=== PATIENT | male | born 1940 | race Caucasian/White ===

== ENCOUNTER 2019-02-01 05:25 | Inpatient (IN) | payer BC ==
[~2019-02-01] VITALS: Ht 182.9 cm; Wt 111.1 kg
[2019-02-01] MEDS ORDERED: TRAM-529 PO (05:45)
[2019-02-01] MEDS ORDERED: TAMS-11 PO (05:45)
[2019-02-01] MEDS ORDERED: FINA5TAB11 PO (05:45)
[2019-02-01] MEDS ORDERED: FENO145T36 PO (05:45)
[2019-02-01] MEDS ORDERED: METO25TA6 PO (05:45)
[2019-02-01] MEDS ORDERED: GLYB2.5T4 PO (05:45)
[2019-02-01] MEDS ORDERED: CHOL100L PO (05:45)
[2019-02-01] MEDS ORDERED: FOLI-43 PO (05:45)
[2019-02-01] MEDS ORDERED: DULA1.5P SQ (05:45)
[2019-02-01] MEDS ORDERED: FERR325T6 PO (05:45)
[2019-02-01] MEDS ORDERED: PRAV40TA58 PO (05:45)
[2019-02-01] MEDS ORDERED: GABA-531 PO (05:45)
[2019-02-01] MEDS ORDERED: CHOL400T15 PO (05:45)
[2019-02-01] MEDS ORDERED: SODIUM CHLORIDE 0.9% 1,000 ML IV SCH (06:15)
[2019-02-01] MEDS ORDERED: BUPIVACAINE HCL 0.5% (5MG/ML) 50ML ONE (06:33)
[2019-02-01] MEDS ORDERED: SKIN ADHESIVE 0.7 GM EA TOP ONE (06:33)
[2019-02-01] MEDS ORDERED: PROPOFOL 200MG/20ML VIAL IV ONE (06:51)
[2019-02-01] MEDS ORDERED: MIDAZOLAM HCL 2 MG/2 ML VIAL ONE (06:51)
[2019-02-01] MEDS ORDERED: GLYCOPYRROLATE 0.2 MG/ML 2ML VIAL ONE ×2 (06:51→08:15)
[2019-02-01] MEDS ORDERED: FENTANYL CITRATE/PF 50MCG/ML 2ML VIAL ONE (06:51)
[2019-02-01] MEDS ORDERED: ROCURONIUM BROMIDE 10MG/ML VIAL 5ML IV ONE (06:51)
[2019-02-01] MEDS ORDERED: NEOSTIGMINE METHYLSULFATE 1MG/ML 10 ML VIAL ONE (06:51)
[2019-02-01] MEDS ORDERED: LEVOFLOXACIN 500MG PREMIX 100 ML IV SCH (07:00)
[2019-02-01] MEDS ORDERED: ACETAMINOPHEN 650MG SUPP PR PRN (07:00)
[2019-02-01] MEDS ORDERED: ONDANSETRON HCL 4MG/2ML INJ IV PRN ×2 (07:00→07:45)
[2019-02-01] MEDS ORDERED: DEXAMETHASONE 4MG/ML 1ML VIAL ONE (07:05)
[2019-02-01] MEDS ORDERED: HYDROMORPHONE HCL/PF 2MG/ML (OR) ONE (07:20)
[2019-02-01] MEDS ORDERED: GLIM4TAB2 PO (07:44)
[2019-02-01] MEDS ORDERED: HYDR-4001 PO (07:44)
[2019-02-01] MEDS ORDERED: LABETALOL 5MG/ML SYR 20 MG/4 ML SYRINGE IV PRN (07:45)
[2019-02-01] MEDS ORDERED: MEPERIDINE HCL/PF 25MG/ML CPJ IV PRN (07:45)
[2019-02-01] MEDS ORDERED: HYDROMORPHONE HCL/PF 2MG/ML CPJ IV PRN (07:45)
[2019-02-01] MEDS ORDERED: BUPIVACAINE HCL 0.5% 125 ML in ON-Q PM012 DRUG DELIV DEVICE 1 EA IR SCH (08:00)
[2019-02-01] MEDS ORDERED: BUPIVACAINE HCL 0.5% 125 ML in ON-Q PUMP (PM012=P100X2) IR SCH (08:15)
[2019-02-01 11:00] VITALS: BP 146/70
[2019-02-01] MEDS ORDERED: OFLO5DRO3 RIGHTEYE (11:11)
[2019-02-01 12:00] VITALS: BP 146/70
[2019-02-01] MEDS: MORPHINE SULFATE 4 MG/ML CPJ (NOT FOR IM USE) IV PRN ×3 (15:13→22:25)
[2019-02-01 16:00] VITALS: BP 179/91
[2019-02-01] MEDS: DEXT 5%/0.45% NACL KCL 20MEQ/L 1,000 ML IV SCH (17:05)
[2019-02-01] MEDS: METRONIDAZOLE 500 MG PREMIX 100 ML IV SCH (18:54)
[2019-02-01 20:00] VITALS: BP 174/87
[2019-02-01] MEDS ORDERED: DEXTROSE 50% WATER 50ML SYRINGE IV PRN (20:15)
[2019-02-01] MEDS: BLOOD SUGAR DIAGNOSTIC STRIP TEST SCH (21:06)
[2019-02-01] MEDS: INSULIN LISPRO 100 UNITS/ML SUBCUT SCH (21:39)
[2019-02-02] VITALS: BP 152/77
[2019-02-02] MEDS: METRONIDAZOLE 500 MG PREMIX 100 ML IV SCH (01:35)
[2019-02-02] MEDS: DEXT 5%/0.45% NACL KCL 20MEQ/L 1,000 ML IV SCH ×3 (01:36→19:54)
[2019-02-02] MEDS: MORPHINE SULFATE 4 MG/ML CPJ (NOT FOR IM USE) IV PRN ×4 (03:24→20:12)
[2019-02-02 04:00] VITALS: BP 166/75
[2019-02-02] MEDS: BLOOD SUGAR DIAGNOSTIC STRIP TEST SCH ×4 (06:36→20:34)
[2019-02-02 08:00] VITALS: BP 144/78
[2019-02-02] MEDS: INSULIN LISPRO 100 UNITS/ML SUBCUT SCH ×4 (08:47→21:40)
[2019-02-02] MEDS: FAMOTIDINE 20MG/2ML VIAL IV SCH ×2 (09:07→09:09)
[2019-02-02 12:00] VITALS: BP_SYST 145; BP_SYST 193; BP_DIAS 76; BP_DIAS 84
[2019-02-02 16:00] VITALS: BP 136/67
[2019-02-02 20:00] VITALS: BP 165/81
[2019-02-03] VITALS (7 sets, daily range): BP systolic 137–176; BP diastolic 74–96
[2019-02-03] MEDS: MORPHINE SULFATE 4 MG/ML CPJ (NOT FOR IM USE) IV PRN ×3 (01:00→09:23)
[2019-02-03] MEDS ORDERED: CLONIDINE 0.1MG TABLET PO PRN (04:00)
[2019-02-03] MEDS: TAMSULOSIN HCL 0.4MG SR CAPSULE PO SCH (04:09)
[2019-02-03] MEDS: BLOOD SUGAR DIAGNOSTIC STRIP TEST SCH ×4 (06:44→21:12)
[2019-02-03] MEDS: INSULIN LISPRO 100 UNITS/ML SUBCUT SCH ×4 (07:37→21:35)
[2019-02-03] MEDS: FAMOTIDINE 20MG/2ML VIAL IV SCH (09:23)
[2019-02-04] VITALS (8 sets, daily range): BP systolic 124–181; BP diastolic 63–88
[2019-02-04] MEDS: MORPHINE SULFATE 4 MG/ML CPJ (NOT FOR IM USE) IV PRN ×3 (05:58→22:28)
[2019-02-04] MEDS: BLOOD SUGAR DIAGNOSTIC STRIP TEST SCH ×4 (06:21→21:00)
[2019-02-04] MEDS: TAMSULOSIN HCL 0.4MG SR CAPSULE PO SCH (08:56)
[2019-02-04] MEDS: FAMOTIDINE 20MG/2ML VIAL IV SCH (08:58)
[2019-02-04] MEDS: INSULIN LISPRO 100 UNITS/ML SUBCUT SCH ×4 (10:22→22:35)
[2019-02-04 16:32] LABS: CLARITY URINE TURBID (CLEAR); COLOR URINE YELLOW (YELLOW); KETONES URINE NEGATIVE (NEGATIVE); LEUKOCYTE ESTERASE URINE 3+ (NEGATIVE); NITRITE URINE NEGATIVE (NEGATIVE); OCCULT BLOOD URINE 2+ (NEGATIVE); PROTEIN URINE 1+ (NEGATIVE); SPECIFIC GRAVITY URINE 1.014 (1.005-1.030); UROBILINOGEN URINE 0.2 E.U./dL (0.2-1.0)
[2019-02-04] MEDS ORDERED: CEFTRIAXONE 1 G PREMIX 50 ML IV SCH (22:30)
[2019-02-05] VITALS: BP 141/73
[2019-02-05 04:00] VITALS: BP 171/90
[2019-02-05 05:21] LABS: BASOPHILS % 0.3 % (0.0-2.0); EOSINOPHILS % 2.9 % (0.0-5.0); HEMATOCRIT. 28.7 % (42.0-52.0); HEMOGLOBIN. 9.7 g/dL (14.0-18.0); LYMPHOCYTES % 23.7 % (20.0-50.0); MEAN CORPUSCULAR VOLUME 85.9 fL (80.0-94.0); MEAN PLATELET VOLUME 8.9 fl (7.4-10.4); NEUTROPHILS % 63.1 % (40.0-76.0); PLATELET 158 x1000/uL (130-400); RED BLOOD CELL COUNT 3.34 mill/uL (4.7-6.1); RED CELL DISTRIBUTION WIDTH 14.3 % (11.6-14.6)
[2019-02-05] MEDS: BLOOD SUGAR DIAGNOSTIC STRIP TEST SCH (06:43)
[2019-02-05] MEDS: INSULIN LISPRO 100 UNITS/ML SUBCUT SCH (06:52)
[2019-02-05 08:00] VITALS: BP 156/81
[2019-02-05 08:22] LABS: PHOSPHORUS 2.7 mg/dL (2.5-4.9)
[2019-02-05] MEDS: TAMSULOSIN HCL 0.4MG SR CAPSULE PO SCH (09:29)
[2019-02-05] MEDS: FAMOTIDINE 20MG/2ML VIAL IV SCH (09:29)
[2019-02-05 12:16] VITALS: BP 138/71
== END 2019-02-05 12:12 | disposition home or self-care (01) | DRG 330 ==
LOC: OR 05:25 → 6EST 05:26
PROVIDERS: ADMIT Surgery; ATTEND Surgery
PROC: 0DTF0ZZ Resection of Right Large Intestine, Open Approach (ICD-10-PCS; principal; 2019-02-01)
DX: C18.2 Malignant neoplasm of ascending colon (principal); N39.0 Urinary tract infection, site not specified; K56.7 Ileus, unspecified; D64.9 Anemia, unspecified; E11.21 Type 2 diabetes mellitus with diabetic nephropathy; E11.22 Type 2 diabetes mellitus with diabetic chronic kidney disease; E11.42 Type 2 diabetes mellitus with diabetic polyneuropathy; E78.5 Hyperlipidemia, unspecified; H40.9 Unspecified glaucoma; I12.9 Hypertensive chronic kidney disease with stage 1 through stage 4 chronic kidney disease, or unspecified chronic kidney disease; K21.9 Gastro-esophageal reflux disease without esophagitis; N18.3 Chronic kidney disease, stage 3 (moderate); N36.8 Other specified disorders of urethra; N40.0 Benign prostatic hyperplasia without lower urinary tract symptoms; Z79.84 Long term (current) use of oral hypoglycemic drugs; Z82.49 Family history of ischemic heart disease and other diseases of the circulatory system; Z85.828 Personal history of other malignant neoplasm of skin; Z87.440 Personal history of urinary (tract) infections
CPT/HCPCS: 36415; 71045; 80048; 82962; 83735; 84100; 86850; 86900; 86920; 87077; 87186; 88309; 88329; 97162; C1893; J0696; J1100; J1170; J1815; J1956; J2250; J2270; J2405; J2704; J2710; J3010; J3490

== ENCOUNTER → 2019-02-23 | Outpatient (CLI) | payer BC ==
[~2019-02-23] MED LIST: CHOL100L PO; CHOL400T15 PO; DULA1.5P SQ; FENO145T36 PO; FERR325T6 PO; FINA5TAB11 PO; FOLI-43 PO; GABA-531 PO; GLIM4TAB2 PO; GLYB2.5T4 PO; HYDR-4001 PO; METO25TA6 PO; OFLO5DRO3 RIGHTEYE; PRAV40TA58 PO; TAMS-11 PO; TRAM-529 PO
[2019-02-23 14:32] LABS: CHLORIDE 109 mEq/L (98-107)
[2019-02-23 14:33] LABS: BASOPHILS % 0.9 % (0.0-2.0); EOSINOPHILS % 4.1 % (0.0-5.0); HEMOGLOBIN. 9.8 g/dL (14.0-18.0); LYMPHOCYTES % 21.5 % (20.0-50.0); MEAN CORPUSCULAR HEMOGLOBIN 28.8 pg (28.0-32.0); MEAN CORPUSCULAR VOLUME 85.5 fL (80.0-94.0); MEAN PLATELET VOLUME 9.1 fl (7.4-10.4); MONOCYTES % 6.8 % (2.0-8.0); NEUTROPHILS % 66.7 % (40.0-76.0); PLATELET 219 x1000/uL (130-400); RED BLOOD CELL COUNT 3.39 mill/uL (4.7-6.1); RED CELL DISTRIBUTION WIDTH 14.5 % (11.6-14.6)
[2019-02-23 14:40] LABS: PARTIAL THROMBOPLASTIN TIME 26.6 sec (23.4-31.0)
== END | disposition home or self-care (01) ==
LOC: LAB 13:42
PROVIDERS: ATTEND Internal Medicine Hematology & Oncology
DX: C18.2 Malignant neoplasm of ascending colon (principal); K21.9 Gastro-esophageal reflux disease without esophagitis; E11.22 Type 2 diabetes mellitus with diabetic chronic kidney disease; I12.9 Hypertensive chronic kidney disease with stage 1 through stage 4 chronic kidney disease, or unspecified chronic kidney disease; N18.3 Chronic kidney disease, stage 3 (moderate)
CPT/HCPCS: 36415